=== PATIENT | male | born 1940 | race Caucasian/White ===

== ENCOUNTER → 2016-12-16 | Outpatient (CLI) | payer OTHER, MEDICARE | LOC: BMCIMAGING 12:10 | PROVIDERS: ATTEND Internal Medicine | DX: M17.12 Unilateral primary osteoarthritis, left knee (principal) ==

== ENCOUNTER → 2017-01-18 | Day surgery (SDC) | payer OTHER, MEDICARE ==
[~2017-01-18] MED LIST: BUPIVACAINE 0.5% 30 ML SDV ONE; DEXAMETHASONE 4 MG/ML VIAL ONE; LIDO/EPI 1% **Not for Epidural 20 ML MDV ONE; LIDOCAINE 1% 2 ML INJ ONE; LIDOCAINE 1% 30 ML SDV ONE; LIDOCAINE 1% 5 ML SDV ID PRN; LIDOCAINE 2% 5 ML SDV ONE; LR 1,000 ML IV ONE; ONDANSETRON 4 MG/2 ML VIAL ONE; PROPOFOL/EMULSION 500 MG/50 ML BOTTLE IV ONE; ceFAZolin 2 GM/DEXTROSE 100 ML IV ONE; fentaNYL 100 MCG/2 ML INJ ONE
--- NOTE | 2017-01-18 13:21 | GOP ---
[f rep st] OPERATIVE REPORT DATE OF OPERATION: 01/18/2017 SURGEON: Beck Dickey MD ANESTHESIA: Modified anesthetic care. ANESTHESIOLOGIST: Dr. Buck. PREOPERATIVE DIAGNOSIS: Recurrent left inguinal hernia. POSTOPERATIVE DIAGNOSIS: Recurrent left inguinal hernia. PROCEDURE PERFORMED: Repair of recurrent left inguinal hernia. FINDINGS: The patient had a small recurrent direct hernia and a small femoral hernia. ESTIMATED BLOOD LOSS: 20 cc. INDICATIONS: 76-year-old male, status post left inguinal hernia repair with mesh. Patient developed recurrent bulge and discomfort. Risks and benefits of procedure were discussed with the patient's f amily, their questions were answered, they wished to proceed. DESCRIPTION OF PROCEDURE: The patient was placed in the supine position. After the induction of angel quate IV sedation, the patient was prepped and draped in the standard surgical fashion. Marcaine 0.5 % was injected throughout the left groin for local anesthesia. An oblique incision was made and guerrero ied to the subcutaneous tissue using cautery. The external oblique was incised in the direction of i ts fibers. The cord was then surrounded at the pubic tubercle. The cord structures were then careful ly dissected, preserving the vas and vessels. The hernia was then dissected down to preperitoneal fa t and reduced. A plug was fashioned from Marlex and secured using 2-0 Vicryl interrupted. An onlay p atch was created and affixed using 2-0 Prolene. Enough room was seen for the cord and an instrument tip. Good hemostasis was noted. The external oblique and Sriram's were approximated using 3-0 Vicryl in a running fashion. Skin was closed with 5-0 Biosyn subcuticular. The wound was sterilely dressed , the patient was taken to the post-anesthesia care unit in stable condition. COMPLICATIONS: None. DRAINS: None. ADDENDUM: A small femoral hernia was identified adjacent to the femoral vein. This was repaired wit h a plug fashioned out of Marlex. No other lesions were identified. /[id number]/MODL
== END | disposition home or self-care (01) ==
LOC: FSGY 07:46
PROVIDERS: ATTEND Surgery
PROC: 0YU60JZ Supplement Left Inguinal Region with Synthetic Substitute, Open Approach (ICD-10-PCS; principal; 2017-01-18 09:15)
PROC: 0YU80JZ Supplement Left Femoral Region with Synthetic Substitute, Open Approach (ICD-10-PCS; principal; 2017-01-18 09:15)
DX: K40.91 Unilateral inguinal hernia, without obstruction or gangrene, recurrent (principal); K41.90 Unilateral femoral hernia, without obstruction or gangrene, not specified as recurrent
CPT/HCPCS: C1781; J0690; J1100; J2405; J2704; J3010